=== PATIENT | female | born 1990 | race African-American/Black ===

== ENCOUNTER 2016-08-28 21:19 | Emergency (ER) | payer MEDICAID ==
[~2016-08-28 21:19] MED LIST: NO MEDICATIONS; TESSALON PERLE100 MG PO
[2016-08-28] MEDS ORDERED: GLUCOPHAGE1000 M1 PO (21:33)
[2016-08-28] MEDS ORDERED: FISH OIL 1,0001 EA10 PO (21:34)
[2016-08-28] MEDS ORDERED: ZOFRAN4 M2 PO (21:40)
== END 2016-08-28 21:42 ==
LOC: EDMED 21:19
DX: J06.9 Acute upper respiratory infection, unspecified (principal); R11.0 Nausea; E11.9 Type 2 diabetes mellitus without complications; Z79.899 Other long term (current) drug therapy